=== PATIENT | male | born 1975 | race Caucasian/White ===

== ENCOUNTER 2020-05-25 10:52 | Outpatient (CLI) | payer OTHER, SELFPAY ==
[2020-05-25 11:05] LABS: Hematocrit 43.1 % (40.0-54.0); Hemoglobin 14.6 g/dL (14.0-18.0); Mean Corpuscular HGB Conc 33.9 g/dL (32.0-36.0); Mean Corpuscular Volume 91.5 fL (78.0-102.0); Mean Platelet Volume 9.5 fl (8.7-11.0); Platelet Count Result 225 K/mm3 (150-420); Red Blood Count 4.71 M/mm3 (4.70-6.10); Red Cell Distribution Width 11.9 % (11.6-14.4); White Blood Count 5.6 K/mm3 (4.8-10.8)
[2020-05-25 12:15] LABS: Alanine Aminotransferase 40 U/L (16-63); Albumin Level 4.1 g/dL (3.4-5.0); Alkaline Phosphatase 72 U/L (46-116); Anion Gap 7 mmol/L (8-16); Aspartate Amino Transferase 23 U/L (15-37); Bilirubin,Total 0.8 mg/dL (0.00-1.00); Blood Urea Nitrogen 22 mg/dL (7-18); Carbon Dioxide 27 mmol/L (21-32); Chloride 105 mmol/L (98-108); Cholesterol 167 mg/dL (0-200); Estimated Glomerular Filt Rate > 60; Glucose 96 mg/dL (70-99); HDL Direct 45 mg/dL (40-60); LDL Cholesterol Calculated 107 mg/dL (<130); Osmolality Calculated 291 mOsm/kg (285-295); Potassium 4.8 mmol/L (3.5-5.1); Sodium 139 mmol/L (136-145); Thyroid Stimulating Hormone 6.72 uIU/mL (0.36-3.74); Total Protein 7.7 g/dL (6.4-8.2); Triglycerides 75 mg/dL (0-150)
[2020-05-25 16:51] LABS: Free T4 Free Thyroxine 0.64 ng/dL (0.76-1.46)
== END 2020-05-25 10:53 | disposition home or self-care (01) ==
PROVIDERS: PCP Physician Assistant; Visit Provider Physician Assistant
DX: I35.8 Other nonrheumatic aortic valve disorders (principal)
CPT/HCPCS: 36415; 80053; 80061; 84439; 84443; 85027

== ENCOUNTER 2021-03-28 13:10 | Outpatient (CLI) | payer OTHER, SELFPAY ==
[2021-03-28 14:04] LABS: Cholesterol 159 mg/dL (0-200); HDL Direct 39 mg/dL (40-60); LDL Cholesterol Calculated 94 mg/dL (<130); Triglycerides 130 mg/dL (0-150)
== END 2021-03-28 13:11 | disposition home or self-care (01) ==
LOC: CHSLAB 13:21
PROVIDERS: PCP Physician Assistant; Visit Provider Physician Assistant
DX: E06.3 Autoimmune thyroiditis (principal)
CPT/HCPCS: 36415; 80061

== ENCOUNTER 2021-05-09 09:39 | Outpatient (CLI) | payer OTHER, SELFPAY ==
[2021-05-09 10:29] LABS: SARS-CoV-2 RNA PCR Negative (Negative)
== END 2021-05-09 09:40 | disposition home or self-care (01) ==
LOC: CHSLAB 09:41
PROVIDERS: PCP Physician Assistant; Visit Provider Physician Assistant
DX: B34.9 Viral infection, unspecified (principal); Z20.822 Contact with and (suspected) exposure to COVID-19
CPT/HCPCS: C9803; U0003; U0005